=== PATIENT | female | born 1955 | race Caucasian/White ===

== ENCOUNTER 2019-08-26 12:34 | Observation (INO) ==
[2019-08-26] MEDS ORDERED: 0.9 % Sodium Chloride 1,000 ML IVC ONE (13:17)
[2019-08-26 13:41] LABS: Bilirubin,Urine Small (Negative); Blood,Urine Negative (Negative); Clarity,Urine Slightly Cloudy (Clear); Color,Urine Yellow (Yellow); Glucose,Urine (UA) Normal (Normal); Ketones,Urine 15 mg/dL (Negative); Leukocyte Esterase,Urine Trace (Negative); Nitrite,Urine Negative (Negative); PH,Urine 5.5 pH Units (5.0-8.0); Protein,Urine 30 mg/dL (Neg-Trace); Urobilinogen,Urine Normal (Normal)
[2019-08-26 14:06] LABS: Bacteria,Urine Many per hpf (None-Few); Hyaline Casts,Urine Moderate per lpf (None-Few); Squamous Epithelial Cell,Urine Few per lpf (None-Few)
[2019-08-26 14:10] LABS: Basophils % 0.2 %; Eosinophils % 0.2 %; Hemoglobin 11.6 g/dL (11.5-15.4); Immature Granulocytes % 0.7 % (0-4); Lymphocytes # 0.8 K/mcL (0.6-4.6); Lymphocytes % 8.3 %; Mean Corpuscular HGB Conc 32.2 g/dL (31.6-35.5); Mean Corpuscular Hemoglobin 26.3 pg (28.0-33.3); Mean Corpuscular Volume 81.6 fL (83.0-100.0); Mean Platelet Volume 10.1 fL (9.4-12.4); Monocytes # 0.7 K/mcL (0.0-1.3); Monocytes % 7.9 %; Neutrophils # 7.6 K/mcL (1.6-8.9); Platelet Count 276 K/mcL (140-400); Red Blood Count 4.41 M/mcL (3.82-4.97); Red Cell Distribution Width 17.8 % (11.5-14.5); Segmented Neutrophils % 82.7 %; White Blood Count 9.2 K/mcL (4.3-11.1)
[2019-08-26 14:16] LABS: INR 1.3; Prothrombin Time 14.2 Seconds (9.4-12.1)
[2019-08-26 14:27] LABS: Alanine Aminotransferase 24 Units/L (7-52); Albumin 3.6 g/dL (3.5-5.7); Albumin/Globulin Ratio 0.9 (1.1-2.2); Alkaline Phosphatase 434 Units/L (34-104); Aspartate Amino Transferase 61 Units/L (13-39); BUN/Creatinine Ratio 38 (6-26); Bilirubin,Direct 0.2 mg/dL (0.0-0.2); Bilirubin,Indirect 0.2 mg/dL (0.0-1.0); Bilirubin,Total 0.4 mg/dL (0.3-1.0); Blood Urea Nitrogen 17 mg/dL (8-23); Calcium 10.2 mg/dL (8.6-10.3); Carbon Dioxide 25 mEq/L (23-29); Chloride 98 mEq/L (98-107); Globulin 4.1 g/dL (2.4-3.5); Glucose 90 mg/dL (70-105); Osmolality,Calculated 281 (280-300); Potassium 3.6 mEq/L (3.5-5.1); Sodium 135 mEq/L (136-145); Total Protein 7.7 g/dL (6.4-8.9); eGFR For African Americans > 60 (> 60); eGFR For Non-African Americans > 60 (> 60)
[2019-08-26] MEDS ORDERED: *HR* FentaNYL (PF) 100 MCG/2 ML VIAL IVP ONE (16:06)
[2019-08-26] MEDS ORDERED: Ondansetron 4 MG/2 ML VIAL IVP PRN (17:43)
[2019-08-26] MEDS ORDERED: Naloxone 0.4 MG/ML INJ IVP PRN (17:43)
[2019-08-26] MEDS: *HR* HYDROcodone/Acet 5/325 mg TABLET PO PRN (21:04)
[2019-08-26] MEDS: 0.9 % Sodium Chloride 1,000 ML IVC SCH (21:09)
[2019-08-27] MEDS: *HR* HYDROcodone/Acet 5/325 mg TABLET PO PRN ×6 (01:35→22:38)
[2019-08-27] MEDS: 0.9 % Sodium Chloride 1,000 ML IVC SCH (05:36)
[2019-08-27] MEDS: cefTRIAXone 1,000 MG in Water for inj. (sterile) 10 ML IVP SCH (09:27)
[2019-08-27] MEDS ORDERED: ALPRAZolam 0.5 MG TABLET PO PRN (10:12)
[2019-08-27 11:36] LABS: Thyroid Stimulating Hormone 2.298 mcIU/mL (0.340-5.600)
[2019-08-27 11:46] LABS: Uric Acid 4.9 mg/dL (2.3-7.6)
[2019-08-27 14:07] LABS: Estimated Average Glucose 126 mg/dl
[2019-08-27] MEDS ORDERED: Isovue-370 500 ML BOTTLE IVP ONE (17:57)
[2019-08-27] MEDS: Lactobacillus 1 EACH CAP.SPRINK PO SCH (19:56)
[2019-08-27] MEDS: *HR* Enoxaparin 80 MG/0.8 ML SYRINGE SQ SCH (19:56)
[2019-08-28] MEDS: *HR* HYDROcodone/Acet 5/325 mg TABLET PO PRN ×3 (02:24→10:50)
[2019-08-28] MEDS: *HR* Enoxaparin 80 MG/0.8 ML SYRINGE SQ SCH ×2 (05:48→18:10)
[2019-08-28] MEDS ORDERED: Ascorbic Acid 500 MG TABLET PO SCH (06:30)
[2019-08-28] MEDS: Lactobacillus 1 EACH CAP.SPRINK PO SCH ×2 (08:51→20:32)
[2019-08-28] MEDS: cefTRIAXone 1,000 MG in Water for inj. (sterile) 10 ML IVP SCH (08:51)
[2019-08-28] MEDS: *HR* OxyCODONE/APAP 5/325 TABLET PO PRN ×2 (14:59→18:54)
[2019-08-28] MEDS ORDERED: *HR* OxyCODONE/APAP 5/325 TABLET PO ONE (20:01)
[2019-08-29] MEDS: *HR* OxyCODONE/APAP 5/325 TABLET PO PRN ×3 (01:05→09:17)
[2019-08-29] MEDS: *HR* Enoxaparin 80 MG/0.8 ML SYRINGE SQ SCH (05:17)
[2019-08-29] MEDS ORDERED: Ascorbic Acid 500 MG TABLET PO SCH (06:30)
[2019-08-29 07:40] VITALS: BP 142/85
[2019-08-29 09:12] LABS: Folate 15.2 ng/mL (3.0-16.0)
[2019-08-29] MEDS: cefTRIAXone 1,000 MG in Water for inj. (sterile) 10 ML IVP SCH (09:16)
[2019-08-29] MEDS: Lactobacillus 1 EACH CAP.SPRINK PO SCH (09:17)
== END 2019-08-29 12:55 | disposition home or self-care (01) ==
LOC: EMEROOPIK 12:34 → INPPIK 12:34
PROVIDERS: ADMIT Internal Medicine; ATTEND Internal Medicine

== ENCOUNTER 2019-09-26 21:45 | Inpatient (IN) ==
[2019-09-26] MEDS ORDERED: levoFLOXacin 750 MG/150 ML 750 MG/150 ML BAG IVPB ONE (21:57)
[2019-09-26] MEDS ORDERED: *HR* OxyCODONE Immed Rel 5 MG TABLET PO ONE (22:00)
[2019-09-26 22:25] LABS: Basophils % 0.1 %; Eosinophils % 0.2 %; Hematocrit 30.1 % (35.3-44.9); Hemoglobin 9.2 g/dL (11.5-15.4); Immature Granulocytes % 1.3 % (0-4); Lymphocytes # 0.6 K/mcL (0.6-4.6); Lymphocytes % 6.3 %; Mean Corpuscular HGB Conc 30.6 g/dL (31.6-35.5); Mean Corpuscular Hemoglobin 26.6 pg (28.0-33.3); Mean Platelet Volume 9.5 fL (9.4-12.4); Monocytes # 0.8 K/mcL (0.0-1.3); Monocytes % 7.8 %; Neutrophils # 8.2 K/mcL (1.6-8.9); Platelet Count 326 K/mcL (140-400); Red Blood Count 3.46 M/mcL (3.82-4.97); Red Cell Distribution Width 20.2 % (11.5-14.5); Segmented Neutrophils % 84.3 %; White Blood Count 9.7 K/mcL (4.3-11.1)
[2019-09-26 22:34] LABS: INR 1.3
[2019-09-26 22:37] LABS: Activated Partial Thrombo Time 29.5 Seconds (26.0-36.0)
[2019-09-26 22:46] LABS: Troponin I < 0.03 ng/mL (< 0.04)
[2019-09-26] MEDS ORDERED: 0.9 % Sodium Chloride 1,000 ML IVC ONE (22:48)
[2019-09-26 23:07] LABS: ABG Base Excess -1 mEq/L (-2 to 3); ABG HCO3 24 mEq/L (21-27); ABG Oxygen Saturation 98 % (95-98); ABG PCO2 39 mmHg (35-45); ABG PH 7.39 pH Units (7.32-7.45); ABG PO2 106 mmHg (85-104); ABG TCO2 25 mEq/L (20-26)
[2019-09-26 23:19] LABS: Bilirubin,Urine Negative (Negative); Blood,Urine Small (Negative); Clarity,Urine Cloudy (Clear); Color,Urine Yellow (Yellow); Glucose,Urine (UA) Normal (Normal); Ketones,Urine Negative (Negative); Leukocyte Esterase,Urine Moderate (Negative); Nitrite,Urine Positive (Negative); Protein,Urine 30 mg/dL (Neg-Trace); Specific Gravity,Urine 1.015 (1.010-1.025); Urobilinogen,Urine Normal (Normal)
[2019-09-26 23:26] LABS: Squamous Epithelial Cell,Urine Many per lpf (None-Few); WBC,Urine 15-30 per hpf (0-3); White Blood Cell Casts,Urine Moderate per lpf (None Seen)
[2019-09-27 00:17] LABS: Alanine Aminotransferase 36 Units/L (7-52); Albumin 3.2 g/dL (3.5-5.7); Albumin/Globulin Ratio 0.9 (1.1-2.2); Alkaline Phosphatase 728 Units/L (34-104); Aspartate Amino Transferase 100 Units/L (13-39); BUN/Creatinine Ratio 35 (6-26); Bilirubin,Direct 0.1 mg/dL (0.0-0.2); Blood Urea Nitrogen 29 mg/dL (8-23); Calcium 9.5 mg/dL (8.6-10.3); Carbon Dioxide 24 mEq/L (23-29); Chloride 99 mEq/L (98-107); Globulin 3.7 g/dL (2.4-3.5); Glucose 88 mg/dL (70-105); Magnesium 1.7 mg/dL (1.6-2.6); Osmolality,Calculated 289 (280-300); Phosphorous 4.3 mg/dL (2.7-4.5); Potassium 4.8 mEq/L (3.5-5.1); Sodium 137 mEq/L (136-145); Total Protein 6.9 g/dL (6.4-8.9); eGFR For African Americans > 60 (> 60); eGFR For Non-African Americans > 60 (> 60)
[2019-09-27] MEDS ORDERED: Ibuprofen 400 MG TABLET PO PRN (00:22)
[2019-09-27] MEDS ORDERED: Naloxone 0.4 MG/ML INJ IVP PRN (00:22)
[2019-09-27] MEDS ORDERED: Lactulose Oral Soln 20 GM/30 ML UDC PO PRN (00:22)
[2019-09-27] MEDS ORDERED: Ondansetron 4 MG/2 ML VIAL IVP PRN (00:22)
[2019-09-27] MEDS ORDERED: NON-FORMULARY MEDICATION 1 EACH EACH (Acetaminophen [Tylenol Arthritis] 1,300 MG) PO PRN (00:22)
[2019-09-27] MEDS: hydrOXYzine pamoate 25 MG CAPSULE PO SCH ×3 (01:50→16:54)
[2019-09-27] MEDS: *HR* HYDROcodone/Acet 5/325 mg TABLET PO PRN ×2 (01:50→10:29)
[2019-09-27] MEDS: cefTRIAXone 2,000 MG in Water for inj. (sterile) 20 ML IVP SCH (01:51)
[2019-09-27] MEDS: 0.9 % Sodium Chloride 1,000 ML IVC SCH ×4 (01:51→10:32)
[2019-09-27 03:56] LABS: Bilirubin,Indirect 0.4 mg/dL (0.0-1.0); Bilirubin,Total 0.5 mg/dL (0.3-1.0)
[2019-09-27 05:59] LABS: Basophils % 0.3 %; Eosinophils % 0.2 %; Hematocrit 29.6 % (35.3-44.9); Hemoglobin 8.9 g/dL (11.5-15.4); Immature Granulocytes % 1.7 % (0-4); Lymphocytes # 0.7 K/mcL (0.6-4.6); Lymphocytes % 8.2 %; Mean Corpuscular HGB Conc 30.1 g/dL (31.6-35.5); Mean Corpuscular Hemoglobin 26.6 pg (28.0-33.3); Mean Corpuscular Volume 88.4 fL (83.0-100.0); Mean Platelet Volume 10.7 fL (9.4-12.4); Monocytes # 0.6 K/mcL (0.0-1.3); Monocytes % 6.8 %; Neutrophils # 7.2 K/mcL (1.6-8.9); Platelet Count 317 K/mcL (140-400); Red Blood Count 3.35 M/mcL (3.82-4.97); Red Cell Distribution Width 20.2 % (11.5-14.5); Segmented Neutrophils % 82.8 %; White Blood Count 8.8 K/mcL (4.3-11.1)
[2019-09-27] MEDS: Ascorbic Acid 500 MG TABLET PO SCH (06:17)
[2019-09-27 06:47] LABS: BUN/Creatinine Ratio 38 (6-26); Blood Urea Nitrogen 32 mg/dL (8-23); Calcium 8.8 mg/dL (8.6-10.3); Carbon Dioxide 19 mEq/L (23-29); Chloride 105 mEq/L (98-107); Glucose 82 mg/dL (70-105); Osmolality,Calculated 292 (280-300); Potassium 5.2 mEq/L (3.5-5.1); Sodium 138 mEq/L (136-145); eGFR For African Americans > 60 (> 60); eGFR For Non-African Americans > 60 (> 60)
[2019-09-27] MEDS ORDERED: Fluticasone Propionate Nasal 50 MCG/SPRAY BOTTLE NS SCH (09:00)
[2019-09-27] MEDS ORDERED: levoFLOXacin 750 MG/150 ML 750 MG/150 ML BAG IVPB SCH (09:00)
[2019-09-27] MEDS ORDERED: *HR* Metformin 500 MG TABLET PO SCH (09:00)
[2019-09-27] MEDS ORDERED: D5% in Water 1,000 ML IVC PRN (10:06)
[2019-09-27] MEDS ORDERED: *HR* Dextrose 50 % in Water (Vial) 50 ML VIAL IVP PRN (10:06)
[2019-09-27] MEDS ORDERED: Dextrose Gel 15 GM/37.5 ML TUBE PO PRN ×2 (10:06)
[2019-09-27] MEDS: Multivit/Ca/Min/Fe/FA 1 TAB TABLET PO SCH (10:30)
[2019-09-27] MEDS: Famotidine 20 MG TABLET PO SCH (10:31)
[2019-09-27] MEDS: Fluticasone Propionate Nasal 50 MCG/SPRAY BOTTLE NS SCH (10:31)
[2019-09-27] MEDS: Aspirin Enteric Coated 81 MG Tablet PO SCH (10:31)
[2019-09-27] MEDS: Lactobacillus 1 EACH CAP.SPRINK PO SCH ×2 (10:33→20:11)
[2019-09-27] MEDS: Metoprolol XL (24 HR) Succ 25 MG TAB.ER.24H PO SCH ×2 (10:33→14:05)
[2019-09-27] MEDS ORDERED: 0.9 % Sodium Chloride 500 ML IVC ONE (11:20)
[2019-09-27] MEDS: Insulin LISPRO 300 UNITS/3 ML VIAL SQ SCH ×3 (11:36→20:14)
[2019-09-27] MEDS: *HR* Enoxaparin 40 MG/0.4 ML SYRINGE SQ SCH (11:37)
[2019-09-27] MEDS: *HR* OxyCODONE Immed Rel 5 MG TABLET PO PRN ×2 (13:37→20:11)
[2019-09-27 18:59] LABS: BUN/Creatinine Ratio 45 (6-26); Blood Urea Nitrogen 24 mg/dL (8-23); Calcium 8.5 mg/dL (8.6-10.3); Carbon Dioxide 22 mEq/L (23-29); Chloride 104 mEq/L (98-107); Glucose 91 mg/dL (70-105); Osmolality,Calculated 286 (280-300); Potassium 3.8 mEq/L (3.5-5.1); Sodium 136 mEq/L (136-145); eGFR For African Americans > 60 (> 60); eGFR For Non-African Americans > 60 (> 60)
[2019-09-27] MEDS: Latanoprost 2.5 ML BOTTLE BOTH EYES SCH (20:12)
[2019-09-28] MEDS: hydrOXYzine pamoate 25 MG CAPSULE PO SCH ×3 (01:15→14:44)
[2019-09-28] MEDS: cefTRIAXone 2,000 MG in Water for inj. (sterile) 20 ML IVP SCH (01:15)
[2019-09-28 04:27] LABS: Hematocrit 26.9 % (35.3-44.9); Hemoglobin 8.3 g/dL (11.5-15.4); Mean Corpuscular HGB Conc 30.9 g/dL (31.6-35.5); Mean Corpuscular Hemoglobin 26.7 pg (28.0-33.3); Mean Corpuscular Volume 86.5 fL (83.0-100.0); Mean Platelet Volume 9.3 fL (9.4-12.4); Platelet Count 234 K/mcL (140-400); Red Blood Count 3.11 M/mcL (3.82-4.97); Red Cell Distribution Width 19.5 % (11.5-14.5); White Blood Count 7.3 K/mcL (4.3-11.1)
[2019-09-28] MEDS: *HR* OxyCODONE Immed Rel 5 MG TABLET PO PRN ×4 (05:08→20:06)
[2019-09-28 05:10] LABS: BUN/Creatinine Ratio 41 (6-26); Blood Urea Nitrogen 17 mg/dL (8-23); Calcium 8.9 mg/dL (8.6-10.3); Carbon Dioxide 22 mEq/L (23-29); Chloride 104 mEq/L (98-107); Glucose 72 mg/dL (70-105); Osmolality,Calculated 286 (280-300); Potassium 3.9 mEq/L (3.5-5.1); Sodium 138 mEq/L (136-145); eGFR For African Americans > 60 (> 60); eGFR For Non-African Americans > 60 (> 60)
[2019-09-28] MEDS ORDERED: *HR* Enoxaparin 40 MG/0.4 ML SYRINGE SQ SCH (06:00)
[2019-09-28] MEDS: *HR* Enoxaparin 40 MG/0.4 ML SYRINGE SQ SCH (06:54)
[2019-09-28] MEDS: Ascorbic Acid 500 MG TABLET PO SCH (06:54)
[2019-09-28] MEDS: Multivit/Ca/Min/Fe/FA 1 TAB TABLET PO SCH (08:01)
[2019-09-28] MEDS: Aspirin Enteric Coated 81 MG Tablet PO SCH (08:01)
[2019-09-28] MEDS: Metoprolol XL (24 HR) Succ 25 MG TAB.ER.24H PO SCH (08:01)
[2019-09-28] MEDS: Famotidine 20 MG TABLET PO SCH (08:01)
[2019-09-28] MEDS: Lactobacillus 1 EACH CAP.SPRINK PO SCH ×2 (08:01→20:05)
[2019-09-28] MEDS: Fluticasone Propionate Nasal 50 MCG/SPRAY BOTTLE NS SCH (08:03)
[2019-09-28] MEDS: 0.9 % Sodium Chloride 1,000 ML IVC SCH (08:03)
[2019-09-28] MEDS: Insulin LISPRO 300 UNITS/3 ML VIAL SQ SCH ×4 (08:03→20:06)
[2019-09-28] MEDS: Latanoprost 2.5 ML BOTTLE BOTH EYES SCH (20:06)
[2019-09-29] MEDS: cefTRIAXone 2,000 MG in Water for inj. (sterile) 20 ML IVP SCH (00:05)
[2019-09-29] MEDS: hydrOXYzine pamoate 25 MG CAPSULE PO SCH ×2 (00:15→09:41)
[2019-09-29] MEDS ORDERED: *HR* Metoprolol 5 MG/5 ML VIAL IVP ONE (01:12)
[2019-09-29] MEDS: 0.9 % Sodium Chloride 1,000 ML IVC SCH (05:26)
[2019-09-29] MEDS: *HR* Enoxaparin 40 MG/0.4 ML SYRINGE SQ SCH (05:26)
[2019-09-29] MEDS: Ascorbic Acid 500 MG TABLET PO SCH (05:26)
[2019-09-29] MEDS: *HR* OxyCODONE Immed Rel 5 MG TABLET PO PRN ×2 (06:04→11:37)
[2019-09-29 06:47] LABS: Hematocrit 34.2 % (35.3-44.9); Hemoglobin 10.2 g/dL (11.5-15.4); Mean Corpuscular HGB Conc 29.8 g/dL (31.6-35.5); Mean Corpuscular Hemoglobin 26.8 pg (28.0-33.3); Mean Platelet Volume 9.3 fL (9.4-12.4); Platelet Count 292 K/mcL (140-400); Red Cell Distribution Width 20.5 % (11.5-14.5); White Blood Count 7.4 K/mcL (4.3-11.1)
[2019-09-29 06:55] LABS: BUN/Creatinine Ratio 33 (6-26); Blood Urea Nitrogen 21 mg/dL (8-23); Calcium 9.6 mg/dL (8.6-10.3); Carbon Dioxide 20 mEq/L (23-29); Chloride 105 mEq/L (98-107); Glucose 105 mg/dL (70-105); Osmolality,Calculated 289 (280-300); Sodium 138 mEq/L (136-145); eGFR For African Americans > 60 (> 60); eGFR For Non-African Americans > 60 (> 60)
[2019-09-29] MEDS: Multivit/Ca/Min/Fe/FA 1 TAB TABLET PO SCH (09:41)
[2019-09-29] MEDS: Lactobacillus 1 EACH CAP.SPRINK PO SCH (09:41)
[2019-09-29] MEDS: Famotidine 20 MG TABLET PO SCH (09:41)
[2019-09-29] MEDS: Fluticasone Propionate Nasal 50 MCG/SPRAY BOTTLE NS SCH (09:42)
[2019-09-29] MEDS: Insulin LISPRO 300 UNITS/3 ML VIAL SQ SCH ×2 (09:42→11:39)
[2019-09-29] MEDS: Aspirin Enteric Coated 81 MG Tablet PO SCH (09:42)
[2019-09-29] MEDS: Metoprolol XL (24 HR) Succ 25 MG TAB.ER.24H PO SCH (09:42)
[2019-09-29 14:28] VITALS: BP 133/80
[2019-09-29] MEDS: *HR* HYDROcodone/Acet 5/325 mg TABLET PO PRN (14:35)
== END 2019-09-29 15:16 | disposition hospice, inpatient (51) | DRG 720 ==
LOC: EMEROOPIK 21:45 → INPPIK 21:45
PROVIDERS: ADMIT Family Medicine; ATTEND Family Medicine

== ENCOUNTER 2019-09-29 14:42 | Inpatient (IN) ==
[2019-09-29] MEDS ORDERED: MOM Conc 10 ML UD.LIQ PO PRN (15:55)
[2019-09-29] MEDS ORDERED: Naloxone 0.4 MG/ML INJ IVP PRN (15:55)
[2019-09-29] MEDS ORDERED: *HR* Promethazine 25 MG/ML VIAL IVP PRN (15:55)
[2019-09-29] MEDS ORDERED: *HR* FentaNYL PATCH 25 MCG PATCH TD SCH (16:00)
[2019-09-29] MEDS ORDERED: Ipratropium/Albuterol Neb 3 ML IH PRN (16:25)
[2019-09-29] MEDS ORDERED: *HR* OxyCODONE Oral Soln 5 MG/5 ML UD.LIQ PO PRN (16:45)
[2019-09-29] MEDS: *HR* OxyCODONE Oral Soln 5 MG/5 ML UD.LIQ PO PRN (18:37)
[2019-09-30] MEDS: *HR* OxyCODONE Oral Soln 5 MG/5 ML UD.LIQ PO PRN ×4 (03:55→21:08)
[2019-09-30] MEDS: *HR* LORazepam Oral Conc 2 MG/ML SL PRN (14:02)
[2019-10-01] MEDS: *HR* OxyCODONE Oral Soln 5 MG/5 ML UD.LIQ PO PRN ×5 (02:20→22:24)
[2019-10-01] MEDS: Ondansetron 4 MG/2 ML VIAL IVP PRN (16:56)
[2019-10-01] MEDS ORDERED: *HR* OxyCODONE Oral Soln 5 MG/5 ML UD.LIQ PO PRN (21:46)
[2019-10-02] MEDS: *HR* OxyCODONE Oral Soln 5 MG/5 ML UD.LIQ PO PRN ×3 (10:30→20:40)
[2019-10-02] MEDS: *HR* FentaNYL PATCH 50 MCG PATCH TD SCH (12:30)
[2019-10-03] MEDS: *HR* OxyCODONE Oral Soln 5 MG/5 ML UD.LIQ PO PRN ×5 (01:16→21:11)
[2019-10-03] MEDS ORDERED: *HR* OxyCODONE Oral Soln 5 MG/5 ML UD.LIQ PO ONE (06:07)
[2019-10-03] MEDS: Ondansetron 4 MG/2 ML VIAL IVP PRN (14:06)
[2019-10-03] MEDS: Morphine Sulfate Oral CONC 10 MG/0.5 ML ORAL.SYG SL PRN (18:27)
[2019-10-03] MEDS ORDERED: Metoprolol XL (24 HR) Succ 50 MG TAB.ER.24H PO ONE (21:15)
[2019-10-04] MEDS: Morphine Sulfate Oral CONC 10 MG/0.5 ML ORAL.SYG SL PRN ×3 (00:26→20:58)
[2019-10-04] MEDS: *HR* LORazepam Oral Conc 2 MG/ML SL PRN ×3 (00:27→20:57)
[2019-10-04] MEDS: *HR* OxyCODONE Oral Soln 5 MG/5 ML UD.LIQ PO PRN (16:59)
[2019-10-04] MEDS ORDERED: 0.9 % Sodium Chloride 250 ML IVPB ONE (18:31)
[2019-10-05] MEDS: Morphine Sulfate Oral CONC 10 MG/0.5 ML ORAL.SYG SL PRN ×2 (08:01→17:41)
[2019-10-05] MEDS: *HR* OxyCODONE Oral Soln 5 MG/5 ML UD.LIQ PO PRN ×4 (09:06→18:38)
[2019-10-05] MEDS: Metoprolol XL (24 HR) Succ 50 MG TAB.ER.24H PO SCH (11:47)
[2019-10-05] MEDS: *HR* FentaNYL PATCH 50 MCG PATCH TD SCH (11:48)
[2019-10-06] MEDS: Morphine Sulfate Oral CONC 10 MG/0.5 ML ORAL.SYG SL PRN ×4 (01:07→23:58)
[2019-10-06] MEDS: Metoprolol XL (24 HR) Succ 50 MG TAB.ER.24H PO SCH (08:40)
[2019-10-06] MEDS: *HR* OxyCODONE Oral Soln 5 MG/5 ML UD.LIQ PO PRN (18:55)
[2019-10-07] MEDS: *HR* OxyCODONE Oral Soln 5 MG/5 ML UD.LIQ PO PRN (01:36)
[2019-10-07] MEDS: Morphine Sulfate Oral CONC 10 MG/0.5 ML ORAL.SYG SL PRN ×2 (08:33→22:29)
[2019-10-07] MEDS: Metoprolol XL (24 HR) Succ 50 MG TAB.ER.24H PO SCH (08:57)
[2019-10-07] MEDS: Ondansetron 4 MG/2 ML VIAL IVP PRN (10:45)
[2019-10-08] MEDS: Metoprolol XL (24 HR) Succ 50 MG TAB.ER.24H PO SCH (08:15)
[2019-10-08] MEDS: Morphine Sulfate Oral CONC 10 MG/0.5 ML ORAL.SYG SL PRN ×4 (08:22→15:58)
[2019-10-08] MEDS: *HR* FentaNYL PATCH 50 MCG PATCH TD SCH (12:37)
[2019-10-08] MEDS ORDERED: 0.9 % Sodium Chloride 1,000 ML IVC ONE (15:10)
[2019-10-09] MEDS: Morphine Sulfate Oral CONC 10 MG/0.5 ML ORAL.SYG SL PRN ×4 (03:56→17:02)
[2019-10-09] MEDS: Metoprolol XL (24 HR) Succ 50 MG TAB.ER.24H PO SCH (08:37)
[2019-10-09] MEDS ORDERED: Ondansetron ODT 4 MG TAB.RAPDIS SL PRN (09:05)
[2019-10-09] MEDS: *HR* LORazepam Oral Conc 2 MG/ML SL PRN (19:54)
[2019-10-10] MEDS ORDERED: Acetaminophen 650 MG RECTAL SUPP RC PRN (06:37)
[2019-10-10] MEDS: Metoprolol XL (24 HR) Succ 50 MG TAB.ER.24H PO SCH (09:10)
[2019-10-11] MEDS: Metoprolol XL (24 HR) Succ 50 MG TAB.ER.24H PO SCH (07:53)
[2019-10-11] MEDS: *HR* FentaNYL PATCH 50 MCG PATCH TD SCH (11:21)
[2019-10-11] MEDS: Morphine Sulfate Oral CONC 10 MG/0.5 ML ORAL.SYG SL PRN ×2 (17:07→21:48)
[2019-10-11] MEDS: *HR* LORazepam Oral Conc 2 MG/ML SL PRN (22:42)
[2019-10-12 10:23] VITALS: BP 46/26
== END 2019-10-12 16:15 | disposition expired | DRG 871 ==
LOC: INPPIK 15:02
PROVIDERS: ADMIT Family Medicine; ATTEND Family Medicine